=== PATIENT | female | born 1960 | race Caucasian/White ===

== ENCOUNTER 2021-02-27 10:12 | Emergency (ER) | payer OTHER ==
[~2021-02-27] VITALS: Ht 157.5 cm; Wt 72.1 kg
[2021-02-27 11:00] VITALS: BP 157/78
--- NOTE | 2021-02-27 11:22 | NUR ---
SEEN AND EXAMINED BY .
[2021-02-27] MEDS ORDERED: BENZONATATE 100 MG CAPSULE PO PRN (11:30)
[2021-02-27] MEDS ORDERED: BENZ-13 PO (11:41)
[2021-02-27] MEDS ORDERED: ALBU18HF2 INH (12:04)
--- NOTE | 2021-02-27 12:17 | NUR ---
Patient discharged to home in stable condition. Written and verbal after care instructions given. Patient verbalizes understanding of instruction.
== END 2021-02-27 12:18 | disposition home or self-care (01) ==
LOC: ER 10:15
DX: U07.1 COVID-19 (principal); R05.9 Cough, unspecified

== ENCOUNTER 2021-04-28 16:22 | Emergency (ER) | payer BC, OTHER ==
[~2021-04-28] VITALS: Ht 152.4 cm; Wt 69.4 kg
[~2021-04-28 16:22] MED LIST: ALBU18HF2 INH; BENZ-13 PO
--- NOTE | 2021-04-28 16:35 | NUR ---
BIBS FOR FACIAL SWELLING, HEADACHE, SEEMA EYE PAIN SINCE 299. RATES PAINS 7/10. IN ROOM AIR AND DENIES SOB. RESPIRATION REGULAR AND UNLABORED. WILL CONTINUE TO MONITOR THE PATIENT.
[2021-04-28] MEDS ORDERED: KETOROLAC TROMETHAMINE INJ 30 MG/ML VIAL ONE (16:52)
[2021-04-28] MEDS ORDERED: diphenhydrAMINE HCL 50 MG/ML VIAL ONE (16:52)
[2021-04-28] MEDS ORDERED: predniSONE 20 MG TABLET ONE (16:52)
[2021-04-28] MEDS ORDERED: diphenhydrAMINE HCL 50 MG/ML VIAL IV ONE (17:00)
[2021-04-28] MEDS ORDERED: IV NS 0.9% 1,000 ML BAG IV ONE (17:00)
[2021-04-28] MEDS ORDERED: predniSONE 10 MG TABLET PO ONE (17:00)
[2021-04-28] MEDS ORDERED: KETOROLAC TROMETHAMINE INJ 30 MG/ML VIAL IV ONE (17:00)
[2021-04-28 18:37] VITALS: BP 136/72
--- NOTE | 2021-04-28 18:37 | NUR ---
The patient is alert and oriented x4. Respiration regular and unlabored. IV removed. Catheter intact and site benign. Pressure and 4x4 applied to site. No bleeding noted.Patient discharged to home in stable condition. Written and verbal after care instructions given. Patient verbalizes understanding of instruction.
== END 2021-04-28 18:38 | disposition home or self-care (01) ==
LOC: EDUNIT# 16:22 → ER 16:23
DX: T78.40XA Allergy, unspecified, initial encounter (principal); R51.9 Headache, unspecified; Z79.899 Other long term (current) drug therapy; X58.XXXA Exposure to other specified factors, initial encounter
CPT/HCPCS: 96361; 96374; 96375; 99284; J1200; J1885; J7030; J7512 ×2